=== PATIENT | male | born 1930 | race Caucasian/White ===

== ENCOUNTER 2017-10-05 18:19 | Inpatient (IN) | payer MEDICARE, OTHER ==
[~2017-10-05] VITALS: Ht 172.7 cm; Wt 81.6 kg
[2017-10-05 19:08] LABS: BASOPHILS 0.1 % (0-2); EOSINOPHILS 0.4 % (0-7); HEMATOCRIT 39.9 % (42.0-54.0); HEMOGLOBIN 12.9 g/dL (13.5-17.5); IMMATURE GRANULOCYTES 0.3 % (0-5); LYMPHOCYTES 7.4 % (15-50); MCH 29.8 pg (26.0-34.0); MCHC 32.3 g/dL (31.0-37.0); MCV 92.1 fL (80.0-100.0); MEAN PLATELET VOLUME 10.5 fL (7.4-10.4); MONOCYTES 8.8 % (2-11); PLATELET COUNT 156 10x3/uL (130-400); RBC 4.33 10x6/uL (4.20-6.10); RDW 15.4 % (11.5-14.5); WBC 9.5 10x3/uL (4.8-10.8)
[2017-10-05] MEDS ORDERED: PRESERVISION AR1 CAP PO (19:19)
[2017-10-05] MEDS ORDERED: OMEPRAZOLE20 M1 PO (19:19)
[2017-10-05] MEDS ORDERED: ASCORBIC ACID500 MG PO (19:19)
[2017-10-05] MEDS ORDERED: VITAMIN B-122500 MCG PO (19:20)
[2017-10-05] MEDS ORDERED: MECLIZINE HCL25 MG PO (19:20)
[2017-10-05] MEDS ORDERED: ALENDRONATE SOD70 MG PO (19:21)
[2017-10-05] MEDS ORDERED: VOLTAREN25 MG PO (19:22)
[2017-10-05] MEDS ORDERED: PLAVIX75 MG PO (19:22)
[2017-10-05] MEDS ORDERED: TOPROL XL25 MG PO (19:22)
[2017-10-05] MEDS ORDERED: ASPIRIN EC81 M1 PO (19:23)
[2017-10-05] MEDS ORDERED: PRAVACHOL20 MG PO (19:23)
[2017-10-05 19:24] LABS: INR 1.04 (0.85-1.17); PROTIME 13.2 SECONDS (11.6-15.0)
[2017-10-05] MEDS ORDERED: EZFE 200200 MG PO (19:24)
[2017-10-05 19:41] LABS: CHOL - HDL RATIO 2.4 ratio (2.3-4.9); LDL-HDL RATIO 1.1 ratio (1.5-3.5)
[2017-10-05 19:44] LABS: ALBUMIN 2.6 g/dL (3.4-5.0); ALKALINE PHOSPHATASE 352 U/L (46-116); ALT (SGPT) 485 U/L (10-68); BILIRUBIN - TOTAL 3.56 mg/dL (0.2-1.3); CALC OSMOLALITY 285 mosm/kg (275-300); CALCIUM 8.8 mg/dL (8.5-10.1); CARBON DIOXIDE 31.7 mmol/L (21.0-32.0); CHLORIDE - SERUM 106 mmol/L (98-107); CREATININE - SERUM 0.7 mg/dL (0.6-1.3); GLUCOSE 117 mg/dL (74-106); SODIUM 143 mmol/L (136-145); UREA NITROGEN 12 mg/dL (7-18); eGFR NON AFRICAN AMERICAN > 90 mL/min (90-120)
[2017-10-05 19:51] LABS: APPEARANCE CLEAR (CLEAR); BILIRUBIN 1+ (NEGATIVE); COLOR ORANGE (YELLOW); GLUCOSE NEGATIVE (NEGATIVE); KETONE NEGATIVE (NEGATIVE); NITRITE NEGATIVE (NEGATIVE); PROTEIN NEGATIVE (NEGATIVE); SPECIFIC GRAVITY 1.005 (1.005-1.020)
[2017-10-05 19:52] LABS: BACTERIA FEW /hpf (NONE SEEN); RED CELLS - URINE 0-5 /hpf (0-5)
[2017-10-05 19:57] LABS: PROTEIN - SERUM 6.7 g/dL (6.4-8.2)
[2017-10-05 20:01] LABS: AMYLASE - SERUM 705 U/L (25-115); LIPASE 3192 U/L (73-393)
[2017-10-05 20:30] VITALS: BP 124/50
[2017-10-05 20:31] VITALS: BP 159/94; BMI 27.4
[2017-10-06] VITALS (7 sets, daily range): BP systolic 113–158; BP diastolic 53–93; Ht 172.7 cm; Wt 81.6 kg
[2017-10-06 06:40] LABS: BASOPHILS 0.2 % (0-2); EOSINOPHILS 2.8 % (0-7); HEMATOCRIT 34.7 % (42.0-54.0); HEMOGLOBIN 11.3 g/dL (13.5-17.5); IMMATURE GRANULOCYTES 0.3 % (0-5); LYMPHOCYTES 11.2 % (15-50); MCH 30.1 pg (26.0-34.0); MCHC 32.6 g/dL (31.0-37.0); MCV 92.5 fL (80.0-100.0); MEAN PLATELET VOLUME 10.8 fL (7.4-10.4); NEUTROPHILS 73.5 % (40-80); PLATELET COUNT 144 10x3/uL (130-400); RBC 3.75 10x6/uL (4.20-6.10); RDW 15.8 % (11.5-14.5)
[2017-10-06 06:54] LABS: WBC 6.5 10x3/uL (4.8-10.8)
[2017-10-06 07:01] LABS: ALBUMIN 2.3 g/dL (3.4-5.0); ALKALINE PHOSPHATASE 293 U/L (46-116); BILIRUBIN - TOTAL 4.08 mg/dL (0.2-1.3); CALC OSMOLALITY 284 mosm/kg (275-300); CARBON DIOXIDE 29.9 mmol/L (21.0-32.0); CHLORIDE - SERUM 107 mmol/L (98-107); GLUCOSE 81 mg/dL (74-106); POTASSIUM - SERUM 3.9 mmol/L (3.5-5.1); PROTEIN - SERUM 5.2 g/dL (6.4-8.2); SODIUM 143 mmol/L (136-145); UREA NITROGEN 15 mg/dL (7-18)
[2017-10-06 07:02] LABS: ALT (SGPT) 353 U/L (10-68); CREATININE - SERUM 0.5 mg/dL (0.6-1.3); eGFR NON AFRICAN AMERICAN > 90 mL/min (90-120)
[2017-10-06 10:36] LABS: LIPASE 1426 U/L (73-393)
[2017-10-06 10:41] LABS: AMYLASE - SERUM 378 U/L (25-115)
[2017-10-07 04:00] VITALS: BP 183/76
[2017-10-07 07:14] LABS: BASOPHILS 0.1 % (0-2); EOSINOPHILS 0.6 % (0-7); HEMOGLOBIN 12.8 g/dL (13.5-17.5); IMMATURE GRANULOCYTES 0.2 % (0-5); LYMPHOCYTES 6.4 % (15-50); MCH 30.1 pg (26.0-34.0); MCHC 32.8 g/dL (31.0-37.0); MCV 91.8 fL (80.0-100.0); MEAN PLATELET VOLUME 11.1 fL (7.4-10.4); NEUTROPHILS 86.7 % (40-80); PLATELET COUNT 163 10x3/uL (130-400); RBC 4.25 10x6/uL (4.20-6.10); RDW 15.4 % (11.5-14.5)
[2017-10-07 07:29] LABS: WBC 9.9 10x3/uL (4.8-10.8)
[2017-10-07 07:32] LABS: ALBUMIN 2.6 g/dL (3.4-5.0); ALKALINE PHOSPHATASE 293 U/L (46-116); ALT (SGPT) 248 U/L (10-68); AMYLASE - SERUM 104 U/L (25-115); BILIRUBIN - TOTAL 1.33 mg/dL (0.2-1.3); CALC OSMOLALITY 283 mosm/kg (275-300); CALCIUM 8.7 mg/dL (8.5-10.1); CARBON DIOXIDE 28.8 mmol/L (21.0-32.0); CHLORIDE - SERUM 106 mmol/L (98-107); CREATININE - SERUM 0.6 mg/dL (0.6-1.3); GLUCOSE 115 mg/dL (74-106); LIPASE 987 U/L (73-393); POTASSIUM - SERUM 3.4 mmol/L (3.5-5.1); PROTEIN - SERUM 6.8 g/dL (6.4-8.2); SODIUM 143 mmol/L (136-145); TRIGLYCERIDE 89 mg/dL (30-200); UREA NITROGEN 8 mg/dL (7-18); eGFR NON AFRICAN AMERICAN > 90 mL/min (90-120)
[2017-10-07 08:16] VITALS: BP 150/93
[2017-10-07 11:56] VITALS: BP 138/86
[2017-10-07 16:28] VITALS: BP 141/89
[2017-10-07 23:19] VITALS: BP 144/64
[2017-10-08 03:40] VITALS: BP 158/68
[2017-10-08 05:16] LABS: BASOPHILS 0.2 % (0-2); EOSINOPHILS 3.8 % (0-7); HEMATOCRIT 38.1 % (42.0-54.0); HEMOGLOBIN 12.4 g/dL (13.5-17.5); IMMATURE GRANULOCYTES 0.5 % (0-5); MCH 30.1 pg (26.0-34.0); MCHC 32.5 g/dL (31.0-37.0); MCV 92.5 fL (80.0-100.0); MEAN PLATELET VOLUME 10.9 fL (7.4-10.4); MONOCYTES 9.6 % (2-11); NEUTROPHILS 75.9 % (40-80); PLATELET COUNT 168 10x3/uL (130-400); RBC 4.12 10x6/uL (4.20-6.10); RDW 15.1 % (11.5-14.5)
[2017-10-08 05:44] LABS: WBC 6.3 10x3/uL (4.8-10.8)
[2017-10-08 05:55] LABS: ALBUMIN 2.5 g/dL (3.4-5.0); ALKALINE PHOSPHATASE 239 U/L (46-116); BILIRUBIN - TOTAL 0.94 mg/dL (0.2-1.3); CALC OSMOLALITY 281 mosm/kg (275-300); CALCIUM 8.6 mg/dL (8.5-10.1); CARBON DIOXIDE 29.3 mmol/L (21.0-32.0); CHLORIDE - SERUM 106 mmol/L (98-107); CREATININE - SERUM 0.7 mg/dL (0.6-1.3); GLUCOSE 111 mg/dL (74-106); LIPASE 692 U/L (73-393); POTASSIUM - SERUM 3.4 mmol/L (3.5-5.1); PROTEIN - SERUM 6.6 g/dL (6.4-8.2); SODIUM 142 mmol/L (136-145); THYROID STIMULATING HORMONE 2.75 uIU/mL (0.36-3.74); UREA NITROGEN 7 mg/dL (7-18); eGFR NON AFRICAN AMERICAN > 90 mL/min (90-120)
[2017-10-08 05:59] LABS: ALT (SGPT) 178 U/L (10-68); AMYLASE - SERUM 62 U/L (25-115)
[2017-10-08 08:43] VITALS: BP 158/85
[2017-10-08] MEDS ORDERED: PROTONIX40 MG PO (09:48)
[2017-10-08 12:08] VITALS: BP 143/72
== END 2017-10-08 12:52 | disposition home or self-care (01) | DRG 440 ==
LOC: EDSEX 18:19 → D.ER 18:19 → D.EDHOLD 18:50 → D.MS 18:50
PROVIDERS: Family Medicine; Family Medicine Adult Medicine
DX: K85.10 Biliary acute pancreatitis without necrosis or infection (principal); E86.0 Dehydration; I10 Essential (primary) hypertension; I25.10 Atherosclerotic heart disease of native coronary artery without angina pectoris; R74.0 Nonspecific elevation of levels of transaminase and lactic acid dehydrogenase [LDH]; K44.9 Diaphragmatic hernia without obstruction or gangrene; N20.0 Calculus of kidney; Z87.891 Personal history of nicotine dependence

== ENCOUNTER 2019-09-02 06:26 | Outpatient (CLI) | payer MEDICARE, OTHER ==
[~2019-09-02] VITALS: Ht 170.2 cm; Wt 90.9 kg
[~2019-09-02 06:26] MED LIST: ALENDRONATE SOD70 MG PO; ASCORBIC ACID500 MG PO; ASPIRIN EC81 M1 PO; EZFE 200200 MG PO; MECLIZINE HCL25 MG PO; OMEPRAZOLE20 M1 PO; PLAVIX75 MG PO; PRAVACHOL20 MG PO; PRESERVISION AR1 CAP PO; PROTONIX40 MG PO; TOPROL XL25 MG PO; VITAMIN B-122500 MCG PO; VOLTAREN25 MG PO
[2019-09-02 07:06] LABS: BASOPHILS 0.1 % (0-2); EOSINOPHILS 1.7 % (0-7); HEMATOCRIT 43.5 % (42.0-54.0); HEMOGLOBIN 13.5 g/dL (13.5-17.5); IMMATURE GRANULOCYTES 0.1 % (0-5); LYMPHOCYTES 8.1 % (15-50); MCH 29.6 pg (26.0-34.0); MCV 95.4 fL (80.0-100.0); MEAN PLATELET VOLUME 11.3 fL (7.4-10.4); MONOCYTES 8.4 % (2-11); NEUTROPHILS 81.6 % (40-80); PLATELET COUNT 160 10x3/uL (130-400); RBC 4.56 10x6/uL (4.20-6.10); RDW 15.5 % (11.5-14.5); WBC 7.9 10x3/uL (4.8-10.8)
[2019-09-02 07:27] VITALS: BP 125/73; Ht 170.2 cm; Wt 90.9 kg
[2019-09-02 07:30] LABS: CALC OSMOLALITY 284 mosm/kg (275-300); CALCIUM 8.8 mg/dL (8.5-10.1); CARBON DIOXIDE 30.4 mmol/L (21.0-32.0); CHLORIDE - SERUM 104 mmol/L (98-107); CREATININE - SERUM 0.9 mg/dL (0.6-1.3); POTASSIUM - SERUM 4.3 mmol/L (3.5-5.1); SODIUM 140 mmol/L (136-145); UREA NITROGEN 17 mg/dL (7-18); eGFR NON AFRICAN AMERICAN 84 mL/min (90-120)
[2019-09-02 07:33] LABS: GLUCOSE 163 mg/dL (74-106)
[2019-09-02 07:40] LABS: APTT 26.5 SECONDS (22.8-39.4); INR 0.92 (0.85-1.17); PROTIME 12.3 SECONDS (11.6-15.0)
[2019-09-02] MEDS ORDERED: OPDIVO (07:42)
--- NOTE | 2019-09-02 07:48 | NUR ---
0730 OXYGEN SATURATION 88-90% ON ROOM AIR. PT STATES HE WEARS OXYGEN AT HOME AT NIGHT. PT PLACED ON BNC 1.5L/MIN. OXYGEN SAT 92-94% ON BNC.
--- NOTE | 2019-09-02 11:41 | NUR ---
PT 02 SAT 88 ON 2LITERS O2. ENCOURAGED DEEP BREATHING SAT RETURN TO MID 90S
--- NOTE | 2019-09-02 11:45 | NUR ---
1145 PT RECIEVED A REG TRAY AND IS SITTING UP IN BED. SON ASSIST PT
--- NOTE | 2019-09-02 15:36 | NUR ---
1515 PT DISCHARGED FROM UNIT HOME IN W/C
== END 2019-09-02 15:15 | disposition home or self-care (01) ==
LOC: D.SP 06:26 → D.RAD 09:00 → D.SP 09:00
PROVIDERS: General Practice; ATTEND Internal Medicine Medical Oncology
DX: C30.0 Malignant neoplasm of nasal cavity (principal); I10 Essential (primary) hypertension; E78.5 Hyperlipidemia, unspecified